=== PATIENT | male | born 1975 | race Caucasian/White ===

== ENCOUNTER 2017-08-18 08:19 | Emergency (ER) | payer OTHER ==
[~2017-08-18] VITALS: Ht 177.8 cm; Wt 104.3 kg
[~2017-08-18 08:19] MED LIST: GLIPIZIDE5 MG PO; INDOMETHACIN50 MG PO; LISINOPRIL5 MG PO; METFORMIN HCL500 MG PO; SIMVASTATIN10 MG PO
--- OUTSIDE RECORDS SUMMARY | 2017-08-18 08:22 | XMS REPORT ---
Author Author [facility] Address Unknown Phone Unavailable Care Team Providers Care Filtration Supervisor Name Role Phone JAYLEEN CEDEÑO Unavailable Unavailable Problems This patient has no known problems. Allergies, Adverse Reactions, Alerts This patient has no known allergies or adverse reactions. Medications This patient has no known medications. Results Test Description Test Time Test Comments Text Results Atomic Results Result Comments HEEL LT [place] [address] Patient Name: FLACO SHAY MR #: [id number] : 1975 Age/Sex: 41/M Req #: [id number] Adm Physician: Ordered by: FRANC SHEFFIELD [employer] Report #: [id number] Location: ER Room/Bed: Procedure: [id number] DX/HEEL LT Exam Date: 12/12/16 Exam Time: 2240 REPORT STATUS: Signed EXAM: HEEL LT DATE: 12/12/2016 8:44 PM Time stamp on exam: 2230 hours INDICATION: Heart plane basketball COMPARISON: None FINDINGS: BONES: No acute fractures. No lytic or blastic lesions. Moderate posterior and plantar calcaneal spurs. JOINTS: The joints are maintained and without erosive changes. No malalignment. SOFT TISSUES: Normal IMPRESSION: No left calcaneal fracture. Moderate posterior and plantar calcaneal spurs. Signed by: Dr. Jeanette Vasquez M.D. on 12/12/2016 11:06 PM Dictated By: JEANETTE VASQUEZ MD 05 Transcribed By: MU on 12/12/162305 COPY TO: FRANC SHEFFIELD NP
[2017-08-18] MEDS ORDERED: METFORMIN HCL500 MG PO (08:43)
[2017-08-18] MEDS ORDERED: PHENERGAN PO (08:45)
[2017-08-18] MEDS ORDERED: LOMOTIL TABLET1 EACH (08:45)
[2017-08-18 09:17] LABS: BILIRUBIN,URINE NEGATIVE (NEGATIVE); COLOR,URINE YELLOW (YELLOW); KETONES,URINE NEGATIVE (NEGATIVE); LEUKOCYTE ESTERASE ,URINE NEGATIVE (NEGATIVE); NITRITE,URINE NEGATIVE (NEGATIVE); PROTEIN,URINE DIPSTICK NEGATIVE (NEGATIVE); URINE UROBILINOGEN 0.2 mg/dL (0.2 - 1)
[2017-08-18 09:31] LABS: BACTERIA,URINE MODERATE /HPF; CLARITY,URINE HAZY (CLEAR); EPITHELIAL CELLS,URINE MODERATE /LPF; MUCUS,URINE MODERATE (RARE)
[2017-08-18] MEDS ORDERED: CEFTRIAXONE SOD 1 GM VIAL IM ONE (10:30)
[2017-08-18 11:00] VITALS: BP 118/79
== END 2017-08-18 11:10 | disposition home or self-care (01) ==
LOC: ER 08:19
DX: R30.0 Dysuria (principal); N30.91 Cystitis, unspecified with hematuria
CPT/HCPCS: 81001; 87086; 99283; J0696

== ENCOUNTER 2021-11-03 10:11 | Emergency (ER) | payer OTHER ==
[~2021-11-03] VITALS: Ht 177.8 cm; Wt 103.0 kg
[~2021-11-03 10:11] MED LIST changes: +LOMOTIL TABLET1 EACH; +PHENERGAN PO; +SODIUM CHLORIDE FLUSH 10 ML SYR IV PRN
[2021-11-03] MEDS ORDERED: KETOROLAC TROMETHAMINE 30 MG/ML VIAL IV STA (10:19)
[2021-11-03 10:29] LABS: BASOPHILS # (AUTO) 0.1 (0.0-0.1); BASOPHILS % 0.5 % (0.0-1.0); EOSINOPHILS # (AUTO) 0.1 (0.0-0.4); EOSINOPHILS % 0.5 % (0.0-6.0); HEMATOCRIT 48.1 % (38.2-49.6); HEMOGLOBIN 16.8 g/dL (14.0-18.0); LYMPHOCYTES # (AUTO) 1.7 (1.0-3.2); LYMPHOCYTES % 13.5 % (18.0-39.1); MEAN CORPUSCULAR HEMOGLOBIN 30.4 pg (28-32); MEAN CORPUSCULAR HGB CONC 34.9 g/dL (31-35); MONOCYTES # (AUTO) 0.7 (0.2-0.8); MONOCYTES % 5.4 % (4.4-11.3); NEUTROPHILS # (AUTO) 9.7 (2.1-6.9); NEUTROPHILS % 79.2 % (38.7-80.0); PLATELET COUNT 289 x10e3/uL (140-360); RED BLOOD COUNT 5.53 x10e6/uL (4.3-5.7); RED CELL DISTRIBUTION WIDTH 12.4 % (11.7-14.4)
[2021-11-03] MEDS ORDERED: ASPIRIN 325 MG TAB PO ONE (10:30)
[2021-11-03 10:41] LABS: INR 0.9
[2021-11-03 10:52] LABS: ALANINE AMINOTRANSFERASE 22 IU/L (0-55); ALBUMIN 4.1 g/dL (3.5-5.0); ALBUMIN/GLOBULIN RATIO 1.1 (0.8-2.0); ALKALINE PHOSPHATASE 76 IU/L (40-150); BLOOD UREA NITROGEN 20 mg/dL (7-26); BUN/CREATININE RATIO 18 (6-25); CARBON DIOXIDE 26 mmol/L (22-29); CHLORIDE 103 mmol/L (98-107); CREATININE, SERUM 1.09 mg/dL (0.72-1.25); GLUCOSE 244 mg/dL (74-118); SODIUM 141 mmol/L (136-145)
[2021-11-03 10:57] LABS: CLARITY,URINE CLEAR (CLEAR); COLOR,URINE YELLOW (YELLOW)
[2021-11-03 10:58] LABS: KETONES,URINE NEGATIVE (NEGATIVE); LEUKOCYTE ESTERASE ,URINE NEGATIVE (NEGATIVE); NITRITE,URINE NEGATIVE (NEGATIVE); PROTEIN,URINE DIPSTICK NEGATIVE (NEGATIVE); URINE UROBILINOGEN 0.2 mg/dL (0.2 - 1)
[2021-11-03 11:18] LABS: AMPHETAMINES SCREEN,URINE NEGATIVE (NEGATIVE); BENZODIAZEPINES SCREEN,URINE NEGATIVE (NEGATIVE); PHENCYCLIDINE SCREEN,URINE NEGATIVE (NEGATIVE)
[2021-11-03 11:20] LABS: BACTERIA,URINE RARE /HPF; EPITHELIAL CELLS,URINE FEW /LPF; RBC,URINE 0-5 /HPF (0-5); WBC,URINE (MAN) 0-5 /HPF (0-5)
[2021-11-03] MEDS ORDERED: IBUPROFEN800 MG PO (11:38)
== END 2021-11-03 11:45 | disposition home or self-care (01) ==
LOC: ER 10:18
DX: R07.89 Other chest pain (principal); E11.65 Type 2 diabetes mellitus with hyperglycemia; Z98.84 Bariatric surgery status
CPT/HCPCS: 36415; 71045; 80053; 80307; 81001; 84484; 85025; 85610; 85730; 93005; 99284; J1885